=== PATIENT | female | born 1985 | race Caucasian/White ===

== ENCOUNTER 2019-03-14 10:12 | Emergency (ER) | payer MEDICAID, OTHER ==
[~2019-03-14] VITALS: Ht 170.2 cm; Wt 104.3 kg
[2019-03-14 10:24] VITALS: BP 145/78
[2019-03-14] MEDS ORDERED: IBUPROFEN 600 MG TAB PO ONE (10:30)
[2019-03-14] MEDS ORDERED: ACETAMINOPHEN/CODEINE#3 (300/30mg) TAB PO ONE (11:30)
== END 2019-03-14 13:54 | disposition home or self-care (01) ==
LOC: ER 10:12
DX: S82.891A Other fracture of right lower leg, initial encounter for closed fracture (principal); W18.39XA Other fall on same level, initial encounter; Y93.01 Activity, walking, marching and hiking; Y92.89 Other specified places as the place of occurrence of the external cause; Y99.8 Other external cause status
CPT/HCPCS: 29515; 73610; 73700